=== PATIENT | female | born 1995 | race Caucasian/White ===

== ENCOUNTER 2023-03-20 01:52 | Emergency (ER) | payer BC, SELFPAY ==
[2023-03-20 01:59] VITALS: BP 120/74; PULSE 115; RESP 16; TEMP 35.5; O2SAT 99; BMI 30.7
--- NOTE | 2023-03-20 02:19 | CRLHL7_ITS ---
For Patients: As a result of the Century Cures Act, medical imaging exams and procedure reports are released immediately into your electronic medical record. You may view this report before your referring provider. If you have questions, please contact your health care provider. INDICATION: Right lower quadrant abdominal pelvic pain, sudden, history of childhood leukemia TECHNIQUE: CT Abdomen and pelvis with i.v. contrast. Coronal and sagittal reformats were obtained. CONTRAST: 93 mL Isovue 370 COMPARISON: None FINDINGS: Lower chest: Unremarkable. Liver: Unremarkable. Spleen: Unremarkable. Pancreas: Unremarkable. Gallbladder: Unremarkable. Kidney: Unremarkable. No kidney or ureteral stones or obstruction seen. Adrenal: Unremarkable. Bowel: Unremarkable. The appendix is mildly enlarged measuring 7 mm and has moderate mucosal enhancement but no significant surrounding inflammatory changes. Vascular: Unremarkable. Lymph: Unremarkable. Peritoneum: Unremarkable. No pneumoperitoneum is seen. No significant ascites is noted. Pelvis: Unremarkable. Soft tissue: Unremarkable. Bone: Unremarkable for age. IMPRESSION: 1. The appendix is mildly enlarged measuring 7 mm and has moderate mucosal enhancement but no significant surrounding inflammatory changes. Close clinical follow-up is recommended to exclude acute appendicitis. Dictated by Rehan Gary MD @ 03/20/2023 3:19:33 AM Please note that all CT scans at this facility use dose modulation, iterative reconstruction, and/or weight-based dosing when appropriate to reduce radiation dose to as low as reasonably achievable. Dictated by: Rehan Gary MD @ 03/20/2023 03:19:36 (Electronically Signed)
--- NOTE | 2023-03-20 02:22 | ED.GENADULT ---
HPI - General Adult General Chief complaint: Abdominal Pain Stated complaint: lower right abdomen pain Time Seen by Provider: 03/20/23 02:09 Source: patient Mode of arrival: ambulatory Limitations: no limitations History of Present Illness HPI narrative: Patient presents with 14 hour history of right lower quadrant abdominal pain, worsening in nature. Awoke with fever tonight of 99.6 with worsening pain after trying to go to bed at typical hour. Nausea since around bedtime. No vomiting. No blood in her stools. Last meal was 8:00 p.m.. Left over hot dish. No blood in her stools, currently on her menses. No dysuria, no history of kidney stones. No prior abdominal surgeries. Does take an oral contraceptive pill. Reports regular use. Pain is dull and achy, does not radiate, constant. Did have similar pain a few months ago that lasted only 1 day, resolved with no complication. Took ibuprofen 90 minutes ago which has helped somewhat. Past medical history notable for childhood aLL. Has tolerated general anesthesia in the past because of Port-A-Cath placement and a couple of spinal taps. She denies any signs of recurrence. She takes long-term medications for acne including an oral contraceptive pill, spironolactone and then a couple of topical agents. She also has migraine medications which are not for daily use. Socially, nonsmoker. No family history of anesthesia complications. ROS notable for the abdominal symptoms as above only, otherwise denies times 12 systems. Related Data Home Medications Medication Instructions Recorded Confirmed dapsone 5 % topical gel g topical 05/11/22 05/11/22 fremanezumab-vfrm 225 mg/1.5 mL ml subcut 05/11/22 05/11/22 subcutaneous syringe (Ajovy Syringe) levonorgestrel 0.15 mg-ethinyl 1 tab PO 05/11/22 05/11/22 estradiol 30 mcg tablets,3 mos pack(91) rizatriptan 10 mg tablet 10 mg PO 05/11/22 05/11/22 tazarotene 0.1 % topical cream g topical 05/11/22 05/11/22 spironolactone 50 mg tablet mg PO 03/20/23 Previous Rx's Medication Instructions Recorded ciprofloxacin HCl 500 mg tablet 500 mg PO BID #20 tabs 03/20/23 (Cipro) metronidazole 500 mg tablet 500 mg PO BID #20 tabs 03/20/23 Allergies Allergy/AdvReac Type Severity Reaction Status Date / Time amoxicillin Allergy Intermediate GI Upset Verified 05/11/22 11:06 cefdinir Allergy Mild Rash Verified 05/11/22 11:06 eletriptan Allergy Mild Hives Verified 05/11/22 11:06 verapamil Allergy Mild Hives Verified 05/11/22 11:06 asparaginase Allergy Unknown Verified 05/11/22 11:06 azrithromicin Allergy Unknown Uncoded 05/11/22 11:06 [facility] Medical History ALL (acute lymphoblastic leukemia) ?C91.00 - Acute lymphoblastic leukemia not having achieved remission (ICD-10) Cough ?R05.9 - Cough, unspecified (ICD-10) Social History Smoking Status: Never smoker How often do you have a drink containing alcohol: never AUDIT-C Alcohol total score: 0 Non-prescribed substance use: denies use service: No Exam Const: Vital Signs, click to edit/add: Vital Signs - 24 hr 03/20/23 01:59 Temperature 96 F L Pulse Rate [Pulse Oximeter] 115 H Respiratory Rate 16 Blood Pressure [Ri ght Upper Arm] 120/74 Pulse Oximetry 99 Oxygen Delivery Me thod Room Air Common normals: no apparent distress and average body habitus General appearance: cooperative, comfortable and well kempt HENMT: Common normals: normocephalic and head/scalp atraumatic Head and scalp: normocephalic and atraumatic Face and sinus: normal facial exam Mouth: oral and palatal mucosa normal Throat: posterior oropharynx normal Eye: Common normals: conjunctivae normal General eye: normal appearance of both eyes Conjunctiva: conjunctiva(e) normal Resp: Common normals: normal respiratory effort, no use of accessory muscles and clear to auscultation bilaterally Effort & inspection: able to speak in complete sentences Auscultation: clear to auscultation bilaterally Cardio: Common normals: regular rate, regular rhythm, S1 normal heart sound, S2 normal heart sound and no murmurs Rate: regular rate Rhythm: regular rhythm Heart sounds: S1 normal and S2 normal GI: Common normals: Normal to inspection, nondistended, normoactive bowel sounds present, no hepatosplenomegaly and no masses Palpation: no hepatosplenomegaly Other: Tender right lower quadrant with no obvious mass. : Common normals: no CVA tenderness Bladder/kidney exam: no CVA tenderness Back & Pelvis: Common normals: no CVA tenderness Extremity: Common normals: normal to inspection, normal capillary refill and no pedal edema Psych: Appearance: well kempt Attitude: engaged Activity/motor behavior: appropriate eye contact Insight: insight good Judgement: judgment good Skin: Common normals: no rashes or lesions noted General skin exam: no rashes or lesions noted Course Course Hospital Course: Differential diagnosis including appendicitis, ovarian cyst, ovarian torsion, colitis, pancreatitis, atypical gallbladder disease, musculoskeletal pain, among others. Recommended test, urinalysis, CT scan of the abdomen and pelvis and typical basic labs. She declines pain medications and nausea medications for now. Await results. Tachycardia noted, will bolus 1 L of IV fluids. She states that she actually does tend to run tachycardic. I do not have any other reason to suspect sepsis as she is not hypotensive nor febrile. Will see how she responds to bolus. Reevaluation(s) Time of Reevaluation #1: 03:47 Reevaluation #1: Discussed findings with patient and with general surgeon. Early appendicitis with no appendicolith. Good candidate for antibiotics and conservative management. Offered appendectomy versus conservative management. Patient is comfortable with conservative management plan. Will be given 1st dose of Cipro and Flagyl here in the emergency department and continue on this for 10 days. She will schedule follow-up with her primary care provider for Friday. Alarm symptoms extensively reviewed that would warrant coming back to the emergency department for appendectomy. Okay to use Tylenol and/or ibuprofen for pain. She verbalizes understanding and agreement of plan of care. Vital Signs Vital signs: Initial Vital Signs Temperature 96 F L 03/20/23 01:59 Temperature Source Temporal Artery Scan 03/20/23 01:59 Pulse Rate 115 H 03/20/23 01:59 Respiratory Rate 16 03/20/23 01:59 Blood Pressure 120/74 03/20/23 01:59 Blood Pressure Mean 89 03/20/23 01:59 Pulse Oximetry 99 03/20/23 01:59 Oxygen Delivery Method Room Air 03/20/23 01:59 Vital Signs Temperature 96 F L 03/20/23 01:59 Pulse Rate 115 H 03/20/23 01:59 Respiratory Rate 16 03/20/23 01:59 Blood Pressure 120/74 03/20/23 01:59 Pulse Oximetry 99 03/20/23 01:59 Oxygen Delivery Method Room Air 03/20/23 01:59 Temperature 96 F L 03/20/23 01:59 Pulse Rate 115 H 03/20/23 01:59 Respiratory Rate 16 03/20/23 01:59 Blood Pressure 120/74 03/20/23 01:59 Pulse Oximetry 99 03/20/23 01:59 Oxygen Delivery Method Room Air 03/20/23 01:59 Medical Decision Making Lab Data Lab results reviewed: Yes I reviewed the patient's lab results Lab results narrative: Mild leukocytosis, mild inflammatory changes as well. Labs: Lab Results 03/20/23 Range/Units 02:27 WBC 13.55 H (4.50-11.00) K/uL RBC 5.10 (4.00-5.20) m/uL Hgb 14.6 (12.0-16.0) gm/dL Hct 42.5 (33.0-51.0) % MCV 83 (80-100) fL MCH 29 (26-34) pg MCHC 34 (32-36) gm/dL RDW Coeff of Jeet 12.5 (11.5-15.5) % Plt Count 287 (140-440) K/uL Neut % (Auto) 81.9 H (42.0-72.0) % Lymph % (Auto) 11.0 L (20-44) % Young % (Auto) 6.0 (0.0-11.0) % Eos % (Auto) 0.5 (0.0-7.0) % Baso % (Auto) 0.2 (0.0-3.0) % Neut # (Auto) 11.10 H (1.7-7.0) K/uL Lymph # (Auto) 1.50 (0.90-2.90) K/uL Young # (Auto) 0.80 (0.00-0.90) K/UL Eos # (Auto) 0.10 (0.00-0.50) K/uL Baso # (Auto) 0.00 (0.00-0.30) K/uL Abs Immat Gran (auto) 0.10 (0.00-0.30) K/uL Imm/Tot Granulo (auto) 0.4 % Sodium 137 (135-149) mmol/L Potassium 3.8 (3.6-5.1) mmol/L Chloride 104 (96-114) mmol/L Carbon Dioxide 25 (20-32) mmol/L BUN 11 (5-24) mg/dL Creatinine 0.7 (0.5-1.5) mg/dL Estimated Creat Clear 114.01 Estimated GFR 122 ml/min Glucose 109 (60-115) mg/dL Lactate 1.4 (0.5-1.9) mmol/L Calcium 9.0 (8.4-10.6) mg/dL Total Bilirubin 0.7 (0.1-1.5) mg/dL AST 24 (12-35) U/L ALT 23 (4-35) U/L Alkaline Phosphatase 58 (40-150) U/L C-Reactive Protein 3.3 H (0.5-1.0) mg/dL Total Protein 7.4 (6.0-8.3) g/dL Albumin 4.2 (3.3-5.0) g/dL Lipase 45 (23-300) U/L Imaging Data CT scan - abdomen: Attestation: I have reviewed the pertinent imaging results. My impression: Possible early appendicitis, no other significant abnormalities Radiologist's impression: IMPRESSION: 1. The appendix is mildly enlarged measuring 7 mm and has moderate mucosal enhancement but no significant surrounding inflammatory changes. Close clinical follow-up is recommended to exclude acute appendicitis. Discharge Plan Discharge Clinical Impression: Acute appendicitis Patient Disposition: Home, Self-Care Condition: Stable Additional Instructions: As we discussed, your CT and labs are consistent with an early appendicitis. Since there is no stone, you are a good candidate for antibiotics and conservative management. I have discussed the case with the surgeon as well. Will start you on a combination of antibiotics to he will be infection. Of note, this does not work all the time. It does work most of the time. Signs that it is not working would be high fever, worsening pain, weakness. Your given your 1st dose in the emergency department, your next dose will be due early this evening. Continue taking twice daily for 10 days. Schedule follow-up appointment with her primary care doctor for Friday. If things are not improving markedly, we should schedule you for an outpatient appendectomy. If at any point, you are getting noticeably more ill, come back to the emergency department right away and we should plan any emergent appendectomy. It is okay to use Tylenol and/or ibuprofen for your pain. Pain that is not controlled with this is again a sign of complication. It is okay to eat and drink as tolerated. I would start with soft, bland foods and liquids, working my way up as my symptoms improve. Activity Level: Activity as Tolerated Discharge Diet: Regular Prescriptions: New ciprofloxacin HCl [Cipro] 500 mg tablet 500 mg PO BID Qty: 20 0RF metronidazole 500 mg tablet 500 mg PO BID Qty: 20 0RF No Action dapsone 5 % gel topical Patient Comments: APPLY TO FACE AND NECK IN THE MORNING tazarotene 0.1 % cream topical Patient Comments: APPLY A PEA SIZED AMOUNT TO FACE NIGHTLY. START EVERY 3RD NIGHT & INCREASE TO NIGHTLY TOLERATED Ajovy Syringe 225 mg/1.5 mL syringe subcut levonorgestrel-ethinyl estrad 0.15 mg-30 mcg (91) tablets,dose pack,3 month 1 tab PO rizatriptan 10 mg tablet 10 mg PO spironolactone 50 mg tablet PO Follow Up/Referrals: Provider,Not a Local [Primary Care Provider] - Stand Alone Forms: Elevation Lab Info Instructions
[2023-03-20 02:33] LABS: Basophils Percent Auto 0.2 % (0.0-3.0); Eosinophils Percent Auto 0.5 % (0.0-7.0); Hematocrit 42.5 % (33.0-51.0); Hemoglobin* 14.6 gm/dL (12.0-16.0); Immature Granulocytes Pct Auto 0.4 %; Lactate* 1.4 mmol/L (0.5-1.9); Mean Corpuscular HGB Conc 34 gm/dL (32-36); Mean Corpuscular Hemoglobin 29 pg (26-34); Mean Corpuscular Volume 83 fL (80-100); Neutrophils Percent Auto 81.9 % (42.0-72.0); Platelet Count* 287 K/uL (140-440); RDW Coefficient of Variation % 12.5 % (11.5-15.5); White Blood Count* 13.55 K/uL (4.50-11.00)
[2023-03-20 02:34] LABS: Slide Review Reflex No
[2023-03-20] MEDS: LACTATED RINGERS 1000 ML 1,000 ML IV (02:45)
[2023-03-20 02:48] LABS: Albumin* 4.2 g/dL (3.3-5.0); Chloride* 104 mmol/L (96-114)
[2023-03-20 02:49] LABS: Potassium* 3.8 mmol/L (3.6-5.1)
[2023-03-20 02:51] LABS: Alanine Aminotransferase* 23 U/L (4-35); Alkaline Phosphatase* 58 U/L (40-150); Aspartate Amino Transferase* 24 U/L (12-35); Bilirubin Total* 0.7 mg/dL (0.1-1.5); Blood Urea Nitrogen* 11 mg/dL (5-24); Carbon Dioxide* 25 mmol/L (20-32); Creatinine* 0.7 mg/dL (0.5-1.5); Est. Creatinine Clearance* 114.01; Estimated Glomerular Filt Rate 122 ml/min; Lipase* 45 U/L (23-300); Sodium* 137 mmol/L (135-149); Total Protein* 7.4 g/dL (6.0-8.3)
[2023-03-20 02:52] LABS: Glucose* 109 mg/dL (60-115)
[2023-03-20 02:54] LABS: C Reactive Protein* 3.3 mg/dL (0.5-1.0)
[2023-03-20] MEDS: CIPROFLOXACIN 500 MG TABLET PO (04:03)
[2023-03-20] MEDS: metroNIDAZOLE 500 MG TABLET PO (04:03)
== END 2023-03-20 04:33 | disposition home or self-care (01) ==
PROVIDERS: Emergency Provider Family Medicine
DX: K35.80 Unspecified acute appendicitis (principal)
CPT/HCPCS: 36415; 74177; 80053; 81003; 81025; 83605; 83690; 85025; 86140; 99284; A9270; J7120; Q9967